=== PATIENT | female | born 1995 | race African-American/Black ===

== ENCOUNTER 2016-11-27 15:24 | Emergency (ER) | payer OTHER ==
[~2016-11-27] VITALS: Ht 162.6 cm; Wt 83.8 kg
[~2016-11-27 15:24] MED LIST: AMOXICILLIN500 M1 PO; ATIVAN0.5 MG PO; BACTRIM,SEPT1 TABLET PO; BENTYL10 MG PO; HYDROCODON-ACE1 EAC7 PO; KEFLEX500 MG PO; MOTRIN600 MG PO; MOTRIN800 MG PO; Motrin PO; NATALCARE RX1 TABLET PO; NOHOMEMEDS; NUVARING VAGIN1 EACH VG; PERCOCET 5/31 TABLET PO; PRENA1 SOFTGEL1 EACH PO; PRENATAL TABLE1 EAC3 PO; TERAZOL 3 CREAM20 GM VG; TYLENOL REGULA325 MG PO; Vicodin,Lortab 5/500 PO; ZITHROMAX Z-PA250 MG PO
[2016-11-27 15:50] LABS: HEMATOCRIT 37.4 % (36.0-46.0); MCH 30.4 PG (29.0-34.0); MCHC 33.7 G/DL (30.0-36.0); MCV 90.3 FL (83-99); MEAN PLAT.VOLUME 11.2 uM^3 (9.5-12.4); PLATELET COUNT 212 K/uL (156-360); RBC DIS.WIDTH-SD 44.8 % (39-53); RED BLOOD COUNT 4.14 M/uL (3.80-5.20); WHITE BLOOD COUNT 6.3 K/uL (4.1-10.2)
[2016-11-27 15:53] LABS: ADD MIUA? YES; BILIRUBIN NEGATIVE; BLOOD LARGE; COLOR YELLOW ((YELLOW)); GLUCOSE (STRIP) NEGATIVE; KETONES TRACE; LEUKOCYTES NEGATIVE; NITRITE NEGATIVE; PROTEIN (STRIP) 30
[2016-11-27 16:00] LABS: CHLORIDE 108 mEq/L (99-109); POTASSIUM 3.5 mEq/L (3.7-5.4); SODIUM 139 mEq/L (136-147)
[2016-11-27 16:02] LABS: GLUCOSE 85 mg/dL (70-99)
[2016-11-27 16:03] LABS: ANION GAP 9 MEQ/L (2-14)
[2016-11-27 16:04] LABS: TOTAL BILIRUBIN 0.3 mg/dL (0.0-1.0)
[2016-11-27 16:06] LABS: ALKALINE PHOSPHATASE 63 IU/L (3-129); GFR ESTIMATE (CALCULATED) > 59 mL/min/
[2016-11-27 16:07] LABS: UREA NITROGEN (BUN) 14 mg/dL (9-23)
[2016-11-27 16:10] LABS: EPITHELIAL CELLS 1+; MUCUS 2+; RED BLOOD CELLS TNTC /HPF (0-5); WHITE BLOOD CELLS RARE /HPF (0-5)
[2016-11-27 16:11] LABS: BACTERIA RARE; CASTS NONE SEEN /LPF; CRYSTALS NONE SEEN; UCUL ADDED? NO
[2016-11-27 16:15] LABS: QUANTITATIVE HCG < 4.0 MIU/ML
[2016-11-27 19:11] VITALS: BP 113/64
== END 2016-11-27 19:15 | disposition home or self-care (01) ==
LOC: EME 15:24
DX: R10.9 Unspecified abdominal pain (principal); N93.9 Abnormal uterine and vaginal bleeding, unspecified; F17.200 Nicotine dependence, unspecified, uncomplicated
CPT/HCPCS: 76856; 80053; 81003; 84702; 85027; 99281; 99285

== ENCOUNTER 2017-06-10 19:33 | Emergency (ER) | payer OTHER ==
[~2017-06-10] VITALS: Ht 165.1 cm; Wt 92.3 kg
[2017-06-10 20:52] VITALS: BP 129/82
== END 2017-06-10 20:52 | disposition home or self-care (01) ==
LOC: EME 19:33 → EXP 19:33
PROC: 0HQGXZZ Repair Left Hand Skin, External Approach (ICD-10-PCS; principal; 2017-06-10)
DX: S61.211A Laceration without foreign body of left index finger without damage to nail, initial encounter (principal); W26.0XXA Contact with knife, initial encounter
CPT/HCPCS: 99281; 99283; S0020

== ENCOUNTER 2017-07-28 22:55 | Outpatient (CLI) | payer OTHER ==
[2017-07-28 23:25] VITALS: BP 127/79
[2017-07-29 00:14] VITALS: BP 125/71
== END 2017-07-29 00:35 | disposition home or self-care (01) ==
LOC: LDRP-OP 22:55 → 2WEST 22:56
DX: O47.03 False labor before 37 completed weeks of gestation, third trimester (principal); Z3A.35 35 weeks gestation of pregnancy; O99.333 Smoking (tobacco) complicating pregnancy, third trimester; F17.200 Nicotine dependence, unspecified, uncomplicated
CPT/HCPCS: 59025; G0378

== ENCOUNTER 2017-08-24 17:23 | Outpatient (CLI) | payer OTHER ==
[2017-08-24 18:07] VITALS: BP 118/65
[2017-08-24 19:37] VITALS: BP 125/74
[2017-08-24] MEDS ORDERED: PRENATAL TABLE1 EAC3 PO (19:45)
[2017-08-25] MEDS ORDERED: TYLENOL EXTRA500 MG PO (22:31)
== END 2017-08-24 19:58 | disposition home or self-care (01) ==
LOC: LDRP-OP 17:23 → 2WEST 17:25 → LDRP-OP 10-01 00:49
DX: O47.1 False labor at or after 37 completed weeks of gestation (principal); Z3A.39 39 weeks gestation of pregnancy; Z86.19 Personal history of other infectious and parasitic diseases
CPT/HCPCS: 59025; G0378

== ENCOUNTER 2017-08-25 21:10 | Outpatient (CLI) | payer OTHER ==
[2017-08-25 21:33] VITALS: BP 118/74
[2017-08-25] MEDS ORDERED: TYLENOL EXTRA500 MG PO (22:31)
== END 2017-08-25 22:30 | disposition home or self-care (01) ==
LOC: LDRP-OP 21:10 → 2WEST 21:11 → LDRP-OP 10-01 21:58
DX: O47.1 False labor at or after 37 completed weeks of gestation (principal); Z3A.39 39 weeks gestation of pregnancy
CPT/HCPCS: 59025; G0378

== ENCOUNTER 2017-08-29 06:56 | Inpatient (IN) | payer OTHER ==
[~2017-08-29] VITALS: Ht 165.1 cm; Wt 91.2 kg
[2017-08-29] VITALS (27 sets, daily range): BP systolic 110–162; BP diastolic 57–85
[~2017-08-29 06:56] MED LIST changes: +TYLENOL EXTRA500 MG PO
[2017-08-29] MEDS ORDERED: TYLENOL PM EX-1 EACH PO (07:34)
[2017-08-29 09:44] LABS: EOSINOPHIL (%) 1.7 % (0-5); EOSINOPHIL COUNT 0.2 K/uL (0-0.3); IMMATURE GRANULOCYTE (%) 1.1 % (0.0-0.7); IMMATURE GRANULOCYTE COUNT 0.1 K/uL; INSTRUMENT ABS NEUTROPHIL CT 5.5 K/uL; MCHC 32.6 G/DL (30.0-36.0); MEAN PLAT.VOLUME 11.6 uM^3 (9.5-12.4); MONOCYTE (%) 11.2 % (3-12); NEUTROPHIL COUNT 5.5 K/uL (1.8-6.4); PLATELET COUNT 173 K/uL (156-360); RBC DIS.WIDTH-CV 14.6 % (11.8-14.6); RBC DIS.WIDTH-SD 49.2 % (39-53); RED BLOOD COUNT 3.37 M/uL (3.80-5.20); WHITE BLOOD COUNT 8.7 K/uL (4.1-10.2)
[2017-08-29] MEDS ORDERED: MOTRIN800 MG PO (17:43)
[2017-08-30 15:15] VITALS: BP 129/84
[2017-08-30 22:30] VITALS: BP 136/89
[2017-08-31 08:24] VITALS: BP 134/79
== END 2017-08-31 11:40 | disposition home or self-care (01) | DRG 775 ==
LOC: LDRP-OP 06:56 → 2WEST 06:57 → LDRP-OP 21:31 → 2WEST 08-31 11:40 → LDRP-OP 10-01 23:03
PROVIDERS: Midwife
PROC: 3E0R3BZ Introduction of Anesthetic Agent into Spinal Canal, Percutaneous Approach (ICD-10-PCS; principal; 2017-08-29)
PROC: 10E0XZZ Delivery of Products of Conception, External Approach (ICD-10-PCS; principal; 2017-08-29)
PROC: 00HU33Z Insertion of Infusion Device into Spinal Canal, Percutaneous Approach (ICD-10-PCS; principal; 2017-08-29)
DX: O99.214 Obesity complicating childbirth (principal); O99.330 Smoking (tobacco) complicating pregnancy, unspecified trimester; F17.200 Nicotine dependence, unspecified, uncomplicated; Z68.30 Body mass index [BMI] 30.0-30.9, adult; E66.9 Obesity, unspecified; Z3A.39 39 weeks gestation of pregnancy; Z37.0 Single live birth
CPT/HCPCS: 82247; 82248; 82261 90; 82776 90; 84030 90; 84510 90; 85025; C1755; J3010; J7120

== ENCOUNTER 2018-01-23 00:57 | Emergency (ER) | payer OTHER ==
[~2018-01-23] VITALS: Ht 162.6 cm; Wt 82.5 kg
[~2018-01-23 00:57] MED LIST changes: +TYLENOL PM EX-1 EACH PO
[2018-01-23] MEDS ORDERED: FIORICET 50-301 EAC1 PO (02:59)
[2018-01-23] MEDS ORDERED: ZOFRAN ODT4 MG PO (02:59)
[2018-01-23 03:16] VITALS: BP 129/84
== END 2018-01-23 03:17 | disposition home or self-care (01) ==
LOC: EME 00:57
DX: R51 Headache (principal); F17.200 Nicotine dependence, unspecified, uncomplicated; Z91.040 Latex allergy status
CPT/HCPCS: 70450; 99281; 99284; J1200; J1885; J2765; J7030

== ENCOUNTER 2018-02-28 07:01 | Day surgery (SDC) | payer OTHER ==
[~2018-02-28] VITALS: Ht 162.6 cm; Wt 81.6 kg
[~2018-02-28 07:01] MED LIST changes: +FIORICET 50-301 EAC1 PO; +MIRENA1 EACH IY; +ZOFRAN ODT4 MG PO
[2018-02-28 08:00] VITALS: BP 120/77
[2018-02-28 08:05] VITALS: BP 120/77
[2018-02-28 08:21] LABS: APPEARANCE CLOUDY ((CLEAR)); BILIRUBIN NEGATIVE; BLOOD MODERATE; COLOR YELLOW ((YELLOW)); GLUCOSE (STRIP) NEGATIVE; KETONES NEGATIVE; LEUKOCYTES TRACE; NITRITE NEGATIVE; PROTEIN (STRIP) 30; SPECIFIC GRAVITY 1.027 (1.000-1.030); UROBILINOGEN 0.2 MG/DL (0.2-1.0)
[2018-02-28 08:54] LABS: HEMATOCRIT 38.4 % (36.0-46.0); HEMOGLOBIN 12.8 G/DL (11.9-15.5); MCH 30.5 PG (29.0-34.0); MCHC 33.3 G/DL (30.0-36.0); MCV 91.6 FL (83-99); RBC DIS.WIDTH-CV 14.1 % (11.8-14.6); RBC DIS.WIDTH-SD 47.1 % (39-53); RED BLOOD COUNT 4.19 M/uL (3.80-5.20); WHITE BLOOD COUNT 5.6 K/uL (4.1-10.2)
[2018-02-28 09:10] LABS: EPITHELIAL CELLS 4+ /HPF; MUCUS 1+ /LPF; RED BLOOD CELLS NONE SEEN /HPF (0-5); WHITE BLOOD CELLS 0-5 /HPF (0-5)
[2018-02-28 09:11] LABS: BACTERIA 1+ /HPF
[2018-02-28 09:47] LABS: PLAT.SUFFICIENCY ADEQUATE; PLATELET COUNT 189 K/uL (156-360)
[2018-02-28 10:08] LABS: CHLORIDE 106 MEQ/L (99-109); CREATININE 0.8 MG/DL (0.6-1.3); GFR ESTIMATE (CALCULATED) > 59 mL/min/; GLUCOSE 76 mg/dL (70-99); POTASSIUM 4.1 MEQ/L (3.7-5.4); SODIUM 138 MEQ/L (136-147); UREA NITROGEN (BUN) 15 mg/dL (9-23)
[2018-02-28 10:12] LABS: QUANTITATIVE HCG < 4.0 MIU/ML
[2018-02-28] MEDS ORDERED: COLACE100 MG PO (10:59)
[2018-02-28] MEDS ORDERED: ONDANSETRON HCL8 MG PO (10:59)
[2018-02-28] MEDS ORDERED: DILAUDID4 MG PO (10:59)
[2018-02-28 12:54] VITALS: BP 129/84
[2018-02-28 13:29] VITALS: BP 125/75
== END 2018-02-28 13:45 | disposition home or self-care (01) ==
LOC: SDC 07:01
PROVIDERS: Surgery
PROC: 0JB70ZZ Excision of Back Subcutaneous Tissue and Fascia, Open Approach (ICD-10-PCS; principal; 2018-02-28)
DX: D17.1 Benign lipomatous neoplasm of skin and subcutaneous tissue of trunk (principal); F17.210 Nicotine dependence, cigarettes, uncomplicated
CPT/HCPCS: 71046; 80048; 81003; 84702; 85027; 88304; C1781; J0131; J0690; J1100; J1885; J2250; J2405; J2710; J2765; J3010

== ENCOUNTER 2018-03-04 11:23 | Emergency (ER) | payer OTHER ==
[~2018-03-04] VITALS: Ht 162.6 cm; Wt 81.0 kg
[~2018-03-04 11:23] MED LIST changes: +COLACE100 MG PO; +DILAUDID4 MG PO; +ONDANSETRON HCL8 MG PO
[2018-03-04 11:43] VITALS: BP 135/88
== END 2018-03-04 13:33 | disposition left against medical advice (07) ==
LOC: EME 11:23
DX: L50.9 Urticaria, unspecified (principal); G89.18 Other acute postprocedural pain; Z98.890 Other specified postprocedural states; Z53.20 Procedure and treatment not carried out because of patient's decision for unspecified reasons; F17.200 Nicotine dependence, unspecified, uncomplicated
CPT/HCPCS: 99281; 99283

== ENCOUNTER 2018-03-16 21:55 | Emergency (ER) | payer OTHER ==
[~2018-03-16] VITALS: Ht 162.6 cm; Wt 82.1 kg
[2018-03-16 23:57] LABS: BASOPHIL (%) 0.6 % (0-1); BASOPHIL COUNT 0.1 K/uL (0-0.1); EOSINOPHIL (%) 2.1 % (0-5); EOSINOPHIL COUNT 0.3 K/uL (0-0.3); HEMATOCRIT 35.3 % (36.0-46.0); HEMOGLOBIN 12.1 G/DL (11.9-15.5); IMMATURE GRANULOCYTE (%) 0.3 % (0.0-0.7); LYMPHOCYTE (%) 21.1 % (15-42); LYMPHOCYTE COUNT 2.6 K/uL (1.0-2.8); MCHC 34.3 G/DL (30.0-36.0); MCV 90.5 FL (83-99); MONOCYTE (%) 10.9 % (3-12); MONOCYTE COUNT 1.4 K/uL (0-0.8); NEUTROPHIL COUNT 8.1 K/uL (1.8-6.4); PLATELET COUNT 212 K/uL (156-360); RBC DIS.WIDTH-CV 13.7 % (11.8-14.6); RBC DIS.WIDTH-SD 45.5 % (39-53); WHITE BLOOD COUNT 12.4 K/uL (4.1-10.2)
[2018-03-17 00:07] LABS: CHLORIDE 108 mEq/L (99-109); POTASSIUM 3.4 mEq/L (3.7-5.4); SODIUM 139 mEq/L (136-147)
[2018-03-17 00:09] LABS: GLUCOSE 100 mg/dL (70-99)
[2018-03-17 00:12] LABS: CREATININE 0.8 mg/dL (0.6-1.3); GFR ESTIMATE (CALCULATED) > 59 mL/min/
[2018-03-17 00:13] LABS: UREA NITROGEN (BUN) 13 mg/dL (9-23)
[2018-03-17] MEDS ORDERED: KEFLEX500 MG PO (01:14)
[2018-03-17] MEDS ORDERED: MOTRIN800 MG PO (01:14)
[2018-03-17] MEDS ORDERED: ULTRACET1 TABLET PO (01:14)
[2018-03-17] MEDS ORDERED: BACTROBAN OINTM22 GM TP (01:17)
[2018-03-17 01:56] VITALS: BP 119/70
== END 2018-03-17 01:57 | disposition home or self-care (01) ==
LOC: EME 21:55
PROVIDERS: Physician Assistant
PROC: 0H96XZZ Drainage of Back Skin, External Approach (ICD-10-PCS; principal; 2018-03-16)
DX: T81.31XA Disruption of external operation (surgical) wound, not elsewhere classified, initial encounter (principal); L76.33 Postprocedural seroma of skin and subcutaneous tissue following a dermatologic procedure; G89.18 Other acute postprocedural pain; Y83.8 Other surgical procedures as the cause of abnormal reaction of the patient, or of later complication, without mention of misadventure at the time of the procedure; F17.200 Nicotine dependence, unspecified, uncomplicated; Z91.040 Latex allergy status
CPT/HCPCS: 80048; 83605; 85025; 87040; 87070; 87075; 87077; 87147; 87186; 87205; 99281; 99285; J0690; J1885; J3010; J7050